=== PATIENT | female | born 2000 | race African-American/Black ===

== ENCOUNTER 2020-09-29 12:54 | Emergency (ER) | payer OTHER ==
[~2020-09-29] VITALS: Ht 160 cm; Wt 69.9 kg
[2020-09-29] MEDS ORDERED: PEPCID AC20 MG PO (22:26)
[2020-09-29] MEDS ORDERED: ONDANSETRON ODT4 MG PO (22:26)
== END 2020-09-29 22:45 | disposition home or self-care (01) ==
LOC: EMR PED 12:54 → ER 12:54 → EMR PED 14:54
DX: E86.0 Dehydration (principal); E87.8 Other disorders of electrolyte and fluid balance, not elsewhere classified; B96.0 Mycoplasma pneumoniae [M. pneumoniae] as the cause of diseases classified elsewhere; R11.2 Nausea with vomiting, unspecified; R53.81 Other malaise; Z03.818 Encounter for observation for suspected exposure to other biological agents ruled out